=== PATIENT | female | born 1975 | race Caucasian/White ===

== ENCOUNTER 2019-05-04 07:47 | Outpatient (CLI) | payer MEDICAID ==
[2019-05-04] MEDS ORDERED: OMNIPAQUE 350 MG/ML, 150 ML BOTTLE ONE (14:55)
== END 2019-05-04 23:59 | disposition home or self-care (01) ==
LOC: CFH 07:47
PROVIDERS: ATTEND Physician Assistant Surgical
DX: R10.9 Unspecified abdominal pain (principal); R35.0 Frequency of micturition; R31.9 Hematuria, unspecified; R30.1 Vesical tenesmus
CPT/HCPCS: 74178; 82565; Q9967